=== PATIENT | male | born 1985 | race Caucasian/White ===

== ENCOUNTER 2016-07-21 11:48 | Emergency (ER) | payer OTHER ==
[2016-07-21] MEDS ORDERED: ACETAMINOPHEN TAB 500 MG TAB PO STA (12:18)
--- NOTE | 2016-07-21 12:29 | ED ---
General Adult HPI - General Chief complaint: Upper Respiratory Infection Stated complaint: flu symptoms Time Seen by Provider: 07/21/16 12:10 Source: patient Mode of arrival: ambulatory Limitations: no limitations - History of Present Illness Initial comments: 30-year-old male patient presents to emergency department today with complaints of cough, congestion, sore throat, and generalized body aches. He states that symptoms started 3 days ago. Patient states that his chest is tight and he has pain with cough. Patient was aware he had a fever but did not take any medication for this. Patient denies any abdominal pain, nausea, vomiting, constipation, diarrhea, or difficulty urinating. - Related Data Home Medications Medication Instructions Recorded Confirmed ALPRAZolam [Xanax] 1 mg PO DAILY PRN 07/21/16 07/21/16 Gabapentin [Neurontin] 1 tab PO TID 07/21/16 07/21/16 PARoxetine HCL [Paxil] 40 mg PO DAILY 07/21/16 07/21/16 QUEtiapine [SEROquel] 50 mg PO HS 07/21/16 07/21/16 Allergies Allergy/AdvReac Type Severity Reaction Status Date / Time Penicillins Allergy Unknown Verified 07/21/16 12:49 Childhood Review of Systems ROS Statement: Those systems with pertinent positive or pertinent negative responses have been documented in the HPI. ROS Other: All systems not noted in ROS Statement are negative. Past Medical History Past Medical History: No Reported History History of Any Multi-Drug Resistant Organisms: None Reported Past Surgical History: No Surgical Hx Reported Past Psychological History: Anxiety, Depression Smoking Status: Current every day smoker Past Alcohol Use History: None Reported Past Drug Use History: Marijuana General Exam Limitations: no limitations General appearance: alert, in no apparent distress Head exam: Present: atraumatic, normocephalic Eye exam: Present: normal appearance, PERRL, EOMI ENT exam: Present: normal exam, mucous membranes moist, TM's normal bilaterally , other (Pharyngeal erythema). Absent: normal oropharynx Neck exam: Present: normal inspection, full ROM. Absent: tenderness, meningismus, lymphadenopathy Respiratory exam: Present: normal lung sounds bilaterally, other (Dry cough noted during exam). Absent: respiratory distress, wheezes, rales, rhonchi Cardiovascular Exam: Present: regular rate, normal rhythm, bradycardia, normal heart sounds. Absent: irregular rhythm, systolic murmur, diastolic murmur, rubs , gallop, clicks GI/Abdominal exam: Present: soft. Absent: distended, tenderness, guarding, rebound, rigid Extremities exam: Present: normal inspection, full ROM, normal capillary refill Back exam: Present: normal inspection. Absent: CVA tenderness (R), CVA tenderness (L) Neurological exam: Present: alert, oriented X3 Psychiatric exam: Present: normal affect Skin exam: Present: warm, dry, intact. Absent: rash Course Vital Signs 07/21/16 12:10 Temperature 101 F H Pulse Rate 85 Respiratory 20 Rate Blood Pressure 128/70 O2 Sat by Pulse 95 Oximetry Medical Decision Making - Medical Decision Making 30-year-old male patient presented to emergency department today for complaints of cough, congestion, sore throat, and fever. Chest x-ray revealed no acute cardiopulmonary process. Influenza PCR test was positive for influenza B. Patient is outside the treatment window as he has had symptoms for the last 3 days. Patient was given by mouth Tylenol while here. Patient has been instructed regarding fever control and management of symptoms. Patient instructed to follow up with his primary care provider in the next 1-2 days for recheck. Patient instructed to return if he has any worse, new, or concerning symptoms. - Lab Data Lab Results 07/21/16 Range/Units 12:15 Influenza Type A RNA Not Detected (Not Detectd) Influenza Type B (PCR) Detected A (Not Detectd) - Radiology Data Radiology results: report reviewed, image reviewed Two-view chest x-ray reveals the cardiomediastinal silhouette, aorta and pulmonary vasculature within normal limits. Lungs and pleural spaces are clear. The impression is no acute cardiopulmonary process. Disposition Clinical Impression: Influenza B Disposition: HOME SELF-CARE Condition: Stable Instructions: Influenza (ED) Additional Instructions: Iacu-sna-upcuujr Tylenol and Motrin for pain and fever control. Increase fluids. Up with primary care provider in one to 2 days for recheck. Return to emergency department for any new, worsening, or concerning symptoms. Referrals: None,Stated [Primary Care Provider] - 1-2 days Time of Disposition: 12:57
--- NOTE | 2016-07-21 12:43 | XR ---
EXAMINATION TYPE: XR chest 2V DATE OF EXAM: 07/21/2016 12:31 PM COMPARISON: None HISTORY: 30-year-old male cough/pain TECHNIQUE: PA and lateral views FINDINGS: The cardiomediastinal silhouette, aorta, and pulmonary vasculature are within normal limits. Lungs an d pleural spaces are clear. IMPRESSION: No acute cardiopulmonary process.
[2016-07-21 13:16] VITALS: BP 109/52; PULSE 95; RESP 18; TEMP 100.4
== END 2016-07-21 13:12 | disposition home or self-care (01) ==
LOC: EC 11:48
DX: J10.1 Influenza due to other identified influenza virus with other respiratory manifestations (principal); Z79.899 Other long term (current) drug therapy; Z88.0 Allergy status to penicillin; F41.9 Anxiety disorder, unspecified; F32.9 Major depressive disorder, single episode, unspecified; F17.200 Nicotine dependence, unspecified, uncomplicated
CPT/HCPCS: 71020; 87502; 99283

== ENCOUNTER 2016-09-16 10:14 | Emergency (ER) | payer OTHER ==
[2016-09-16 10:19] VITALS: RESP 18
--- NOTE | 2016-09-16 10:22 | ED ---
Lower Extremity Injury HPI - General Chief Complaint: Extremity Injury, Lower Stated Complaint: ankle injury Source: patient Mode of arrival: wheelchair Limitations: no limitations - History of Present Illness Initial Comments: Patient is a 31-year-old male who presents for evaluation after a slip and fall on a roof and he twisted his right ankle. Past medical history of depression/ PTSD. 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 He was carrying some materials and he slipped twisting his right ankle. He slid down the roof but did not fall off of the roof. He had pain and swelling to the right ankle. Was unable to bear any weight on it after. He stated he was hopping around. No previous right ankle injuries. No pain to the right knee. He has multiple areas of scratches on it. He is up-to-date with his Tdap. Patient is also requesting a refill of his paroxetine. He takes 20 mg. He also admits to some nausea. Denies fever, chills, headache, chest pain, shortness breath, cough, vomiting. - Related Data Home Medications Medication Instructions Recorded Confirmed ALPRAZolam [Xanax] 1 mg PO DAILY PRN 07/21/16 09/16/16 QUEtiapine [SEROquel] 50 mg PO HS 07/21/16 09/16/16 Gabapentin [Neurontin] 300 mg PO TID 09/16/16 09/16/16 Ibuprofen [Motrin] 800 mg PO DAILY PRN 09/16/16 09/16/16 Naproxen Sodium [Aleve] 220 mg PO DAILY PRN 09/16/16 09/16/16 PARoxetine HCL [Paxil] 20 mg PO DAILY 09/16/16 09/16/16 Previous Rx's Medication Instructions Recorded HYDROcodone/APAP 5-325MG [Weston 1 - 2 tab PO Q6HR PRN #15 tab 09/16/16 5-325] PARoxetine [Paxil] 20 mg PO DAILY #5 tab 09/16/16 Allergies Allergy/AdvReac Type Severity Reaction Status Date / Time Penicillins Allergy Unknown Verified 09/16/16 10:33 Childhood Review of Systems ROS Statement: Those systems with pertinent positive or pertinent negative responses have been documented in the HPI. ROS Other: All systems not noted in ROS Statement are negative. Past Medical History Past Medical History: No Reported History Additional Past Medical History / Comment(s): depression History of Any Multi-Drug Resistant Organisms: None Reported Past Surgical History: No Surgical Hx Reported Past Psychological History: Anxiety, Depression Smoking Status: Current every day smoker Past Alcohol Use History: None Reported Past Drug Use History: Marijuana General Exam Limitations: no limitations General appearance: alert, in no apparent distress Head exam: Present: atraumatic, normocephalic, normal inspection Eye exam: Present: normal appearance, PERRL, EOMI. Absent: scleral icterus, conjunctival injection, periorbital swelling ENT exam: Present: normal exam, mucous membranes moist Neck exam: Present: normal inspection. Absent: tenderness, meningismus, lymphadenopathy Respiratory exam: Present: normal lung sounds bilaterally. Absent: respiratory distress, wheezes, rales, rhonchi, stridor Cardiovascular Exam: Present: regular rate, normal rhythm, normal heart sounds. Absent: systolic murmur, diastolic murmur, rubs, gallop, clicks GI/Abdominal exam: Present: soft, normal bowel sounds. Absent: distended, tenderness, guarding, rebound, rigid Extremities exam: Present: tenderness, normal capillary refill, joint swelling, other (Swelling to the lateral aspect of his right ankle. Limited range of motion. No pain with palpation of the midfoot. Distal pulses intact to the right foot.). Absent: pedal edema, calf tenderness Back exam: Present: normal inspection Neurological exam: Present: alert, oriented X3, CN II-XII intact Psychiatric exam: Present: normal affect, normal mood Skin exam: Present: warm, dry, intact, normal color. Absent: rash Course Vital Signs 09/16/16 10:16 Temperature 99.0 F Pulse Rate 61 Respiratory 18 Rate Blood Pressure 107/66 O2 Sat by Pulse 98 Oximetry Medical Decision Making - Medical Decision Making 1030: Patient presents for evaluation for right ankle pain and swelling after slip and fall. Patient also requesting a refill of his proximal 2. He does not have a primary care physician down here as he recently moved from [place]. We'll order plain films of his right ankle. 30 mg IM Toradol. We'll confirm his prescriptions status and prescribe him a short course of paroxetine to prevent withdrawal. 1100: Lateral malleolus fx on the right. 1130: Splint Disposition Clinical Impression: Fractured lateral malleolus Disposition: HOME SELF-CARE Condition: Good Instructions: Ankle Fracture (ED) Prescriptions: HYDROcodone/APAP 5-325MG [Weston 5-325] 1 - 2 tab PO Q6HR PRN #15 tab PRN Reason: Pain PARoxetine [Paxil] 20 mg PO DAILY #5 tab Referrals: Kalen James MD [STAFF PHYSICIAN] - 1-2 days Mo Crooks MD [Medical Doctor] - 1-2 days
[2016-09-16] MEDS ORDERED: KETOROLAC 30 MG/ML 1 ML VIAL IM STA (10:28)
--- NOTE | 2016-09-16 11:00 | XR ---
EXAMINATION TYPE: XR ankle complete RT DATE OF EXAM: 09/16/2016 10:40 AM COMPARISON: NONE HISTORY: 31-year-old male rolled right ankle wall and roof, pain. TECHNIQUE: 3 views FINDINGS: There is a minimally displaced oblique fracture of the distal fibula with overlying soft tissue swell ing. Additional anterior soft tissue swelling. Subtalar joint is aligned. Talar dome is intact. IMPRESSION: Minimally displaced oblique lateral malleolus fracture. Overlying soft tissue swelling.
[2016-09-16 11:39] VITALS: BP 115/55; PULSE 64; TEMP 99.4
== END 2016-09-16 11:39 | disposition home or self-care (01) ==
LOC: EC 10:14
DX: S82.61XA Displaced fracture of lateral malleolus of right fibula, initial encounter for closed fracture (principal); R11.0 Nausea; F32.9 Major depressive disorder, single episode, unspecified; F41.9 Anxiety disorder, unspecified; F17.200 Nicotine dependence, unspecified, uncomplicated; Z79.899 Other long term (current) drug therapy; Z88.0 Allergy status to penicillin; W01.0XXA Fall on same level from slipping, tripping and stumbling without subsequent striking against object, initial encounter; Y92.89 Other specified places as the place of occurrence of the external cause; Y93.89 Activity, other specified
CPT/HCPCS: 99283; 96372; 29515; 73610; J1885

== ENCOUNTER 2017-01-14 11:52 | Day surgery (SDC) | payer OTHER ==
[2017-01-13 13:47] VITALS: BMI 22.4
[~2017-01-14 11:52] MED LIST: DEXAMETHASONE SOD PHOSPHATE 10 MG/ML 1 ML VIAL IV ONE; HYDROmorphone 1 MG/ML 1 ML SYRINGE IVP PRN; LACTATED RINGERS 1,000 ML IV SCH; ONDANSETRON 4 MG/2 ML VIAL IVP ONE; ceFAZolin 2 GM in SODIUM CHLORIDE 0.9% 100 ML IVPB ONE
[2017-01-14] MEDS ORDERED: LIDOCAINE 1% 20 ML VIAL (10MG/ML) FOR IV START INTRADERMA ONE (12:33)
[2017-01-14] MEDS ORDERED: fentaNYL (PF) 50 MCG/ML 2 ML AMP IV ONE (13:20)
[2017-01-14] MEDS ORDERED: MIDAZOLAM 2 MG/2 ML VIAL IV ONE (13:20)
--- NOTE | 2017-01-14 13:52 | P.ONQ ---
Anesthesiology Proc Note - PNB - Peripheral Nerve Block Performed Right Popliteal Single Time Out Performed: Yes Indication: Acute Post-Operative Pain, Analgesia Specifically requested for management of pain by DrMari: Mo Crooks Sedation Type: Sedate with meaningful contact maintained Preparation: Sterile Prep Position: Supine (L lateral) Catheter: None Needle Types: Other (see comment) (pajunk) Needle Size: 50mm (2") Needle Gauge: 21 Technique: Ultrasound Injectate: Other (see comment) (10cc 2% lido + 10cc 0.5% Bupivicaine + epi 1:200 ,000) Blood Aspirated: No Pain Paresthesia on Injection Noted: No Resistance on Injection: Normal Events: Uneventful and Well Tolerated
[2017-01-14] MEDS ORDERED: ePHEDrine SULFATE/0.9% NACL/PF 50 MG/5 ML SYRINGE IV ONE (14:40)
[2017-01-14] MEDS ORDERED: LIDOCAINE 1% INJ 10MG/ML (20 ML MDV) ONE (14:40)
[2017-01-14] MEDS ORDERED: MIDAZOLAM 2 MG/2 ML VIAL ONE (14:40)
[2017-01-14] MEDS ORDERED: PROPOFOL 10 MG/ML 20 ML VIAL IV ONE (14:40)
[2017-01-14] MEDS ORDERED: ALBUTEROL INHALER 60 PUFF/8 GM INHALER INHALATION ONE (14:40)
[2017-01-14] MEDS ORDERED: fentaNYL (PF) 50 MCG/ML 2 ML AMP ONE (14:40)
[2017-01-14] MEDS ORDERED: SUCCINYLCHOLINE CHLORIDE 100 MG/5 ML SYR IV ONE (14:40)
[2017-01-14] MEDS ORDERED: GLYCOPYRROLATE 0.2 MG/ML 2 ML VIAL ONE (14:40)
[2017-01-14] MEDS ORDERED: LACTATED RINGERS 1,000 ML IV ONE (15:12)
[2017-01-14] MEDS ORDERED: HYDROcodone/APAP 10-325MG 1 EACH TAB PO ONE (16:10)
--- NOTE | 2017-01-14 16:32 | XR ---
Fluoroscopy History: RIGHT ANKLE FX right ankle fx. 15 secs fluoro, 5 saved images in OR for Dr. Crooks. images scanned under ankle ord er.
--- NOTE | 2017-01-14 16:55 | P.OP ---
Date of Procedure: 01/14/17 Preoperative Diagnosis: 1. Right lateral malleolus nonunion 2. Current every day cigarette smoker Postoperative Diagnosis: Same Procedure(s) Performed: 1. Open reduction and internal fixation of right lateral malleolus ankle fracture nonunion 2. Right calcaneal bone graft harvest 3. Application of short leg splint Implants: Anesthesia: VINICIO regional Surgeon: Mo Crooks Biomedical Engineering Technician #1: Karan Hannon Estimated Blood Loss (ml): 10 IV fluids (ml): 1,500 Pathology: none sent Condition: stable Disposition: PACU Indications for Procedure: The patient is a 31-year-old male with a medical history significant for smoking a pack of cigarettes a day who sustained a right ankle fracture in August 2016. He had x-rays which showed a minimally displaced Silva B distal fibula fracture and stable manual external rotation stress x-rays. He was managed nonoperatively in a boot area he went on to have continued pain and x- ray findings showing a delayed union. He was managed with calcium and vitamin D supplementation as well as a bone stimulator. He continued to have significant pain over the lateral aspect of his ankle. X-rays showed minimal interval healing. I recommended a computed tomography scan but due to the patient's health insurance status he is inclined. We discussed continued nonsurgical treatment with limited weightbearing and use of a bone stimulator versus open reduction and internal fixation and bone grafting. The patient elected to undergo surgery. We discussed potential risks and complications of surgery including but not limited to risk of anesthesia, risk of superficial infection, risk of deep infection, risk of delayed wound healing, risk of fracture nonunion risk of fracture malunion risk of intraoperative fracture, risk of postoperative fracture, risk of damage to local blood vessels or nerves , risk of symptomatic hardware, risk of peroneal tendon irritation, risk of postoperative calcaneus fracture, risk of chronic pain, risk of chronic swelling , risk of inability to regain preinjury level of function, risk of difficulty walking, risk of need for assistive device to ambulate, risk of inability to ambulate, risk of need for further surgery, risk of posterior medical arthritis , risk of DVT, risk of fatal PE, and possibly loss of life or limb. The patient understands all of these complications and that he is a much higher risk of having a complication due to his cigarette smoking. Operative Findings: There was a fibrous nonunion of the distal fibula fracture. The fracture site was still visible and easily manipulated laterally and anteriorly. There is a small amount of hard callus over the posterior lateral aspect of the fracture. Description of Procedure: The patient is a modified in preoperative holding and the correct right lower extremity was marked with my initials. I reviewed the consent form with the patient and his family. All of their questions were answered. A preoperative popliteal nerve block was placed by anesthesia. The patient was then brought back to the operating room. He was positioned on the operating room table and a general anesthetic and preoperative antibiotics were administered. All bony prominences were well-padded. A tourniquet was applied to the proximal aspect of the right thigh. A bone foam ramp was placed under the patient's right leg. The patient's right leg was then prepped and draped in the standard sterile fashion. Prior to starting surgery timeout was performed identifying the correct patient, operative extremity, and procedure. The patient's leg was then elevated, exsanguinated with an Esmarch bandage and the tourniquet was inflated to 250 mmHg. I began by outlining a longitudinal incision centered over the lateral malleolus. Skin incision was made a 15 blade scalpel. Dissection was carried down carefully the subcutaneous tissue with tenotomy scissors. A large branch the superficial peroneal nerve was identified in the proximal aspect of the wound and carefully retracted. The periosteum over the lateral malleolus was incised longitudinally in line with the skin incision. The fracture site was identified and exposed. There was an obvious fibrous nonunion with gross motion at the lateral and aspect of the fracture. There was some bony callus over the posterior lateral aspect of the fracture. All of the fibrous tissue was removed using a series of curettes down to healthy-appearing bleeding bone. The fracture was circumferentially exposed to allow the distal fragment to be reduced. At this point I elected to take bone graft from the calcaneus. A small stab incision was made over the lateral wall of the calcaneus. A 4.5 mm Job it was used to breech the outer cortex of the calcaneus. A 4.5 mm drill guide was used to take a large core bone out of the calcaneus. The core of bone was passed off to the back table. Attention was turned back to the distal fibula fracture. The wound was copiously irrigated. I verified that all of the exposed bone was healthy appearing bone with no fibrous tissue. The previously obtained calcaneal bone graft was then packed at the fracture nonunion site. I then reduced the fracture and placed a small [id number] reduction clamp generating excellent compression across the fracture site. I then placed a 6-hole one third tubular plate in the posterior lateral position to use as an anti-glide construct. I placed a 3.5 mm screw in the third hole of the plate just proximal to the fracture. I then placed a 3.5 mm screw in the first hole of the plate. I then placed a 3.5 mm screw in the sixth hole of the plate in the distal fragment. Finally I placed a 2.7 mm lag screw through the fifth hole of the plate. Using a 2.7 mm drill bit are graded a gliding hole in the posterior cortex the distal fragment and then used a 2.0 mm drill bit to create a threaded hole in the anterior cortex the proximal fragment. A fully threaded 2.7 mm lag screw was applied generating excellent compression across the fracture nonunion site. Conically the fracture appeared to be reduced and compressed. C-arm fluoroscopy was then taken to verify position of the hardware and reduction of the ankle. Both wounds were then copiously irrigated. The periosteum was closed with a running 0 Vicryl stitch. The deep subcu was reapproximated using 2-0 Vicryl. The skin was closed using 3-0 nylon Allgower modification of the Donati stitch. The incision over the calcaneus was closed with a single 3-0 nylon horizontal mattress stitch. I verified that all instrument, sponge, and sharp counts were correct. A sterile dressing consisting of Betadine soaked Adaptic, 4 x 4, and web roll was applied. A very well-padded bulky Ortiz splint was placed. The patient was then awoken from his anesthetic and transferred to the PACU having tolerated procedure well. Karan Hannon PA-C was required is a skilled campus administrative assistant for patient positioning, surgical exposure, fracture reduction, placement of hardware, closure of wounds , application of splint. Plan: The patient is going to be discharged home as an outpatient. He is to remain strictly nonweightbearing on his operative extremity. He was given up her prescription for pain medication and distal softener. He was also given a prescription for aspirin 325 mg twice a day. I counseled him at length about the importance of smoking cessation.
[2017-01-14 16:58] VITALS: TEMP 97.9
[2017-01-14 18:02] VITALS: RESP 16
[2017-01-14 18:19] VITALS: BP 116/68; PULSE 94
== END 2017-01-14 19:14 | disposition home or self-care (01) ==
LOC: OR 11:52
PROVIDERS: ATTEND Orthopaedic Surgery
DX: S82.61XA Displaced fracture of lateral malleolus of right fibula, initial encounter for closed fracture (principal); M79.7 Fibromyalgia; F32.9 Major depressive disorder, single episode, unspecified; F17.210 Nicotine dependence, cigarettes, uncomplicated; Z79.1 Long term (current) use of non-steroidal anti-inflammatories (NSAID); Z79.891 Long term (current) use of opiate analgesic; Z79.899 Other long term (current) drug therapy; Z88.0 Allergy status to penicillin
CPT/HCPCS: 73600; 27792; 27726; 27899; 20902; C1713; J2250; J1100; J0690; J2405; J3010

== ENCOUNTER → 2017-08-11 | Outpatient (CLI) | payer OTHER ==
--- NOTE | 2017-08-11 21:45 | CT ---
Right ankle EXAMINATION TYPE: CT ankle RT wo con DATE OF EXAM: 08/11/2017 COMPARISON: NONE HISTORY: Pain in right ankle. CT DLP: [address] of the right ankle with reconstruction imaging. TECHNIQUE: Unenhanced CT of the right ankle was performed with bone and soft tissue window settings s ubmitted in the axial coronal and sagittal planes. At a separate workstation 3-D TR imaging was obta ined. FINDINGS: Previous plate fixation distal fibular fracture with fixation screws in place. There is ovidio dence of partial nonunion ventral portion distal fibular fracture. No acute fracture is evident. Tibi a is intact. Medial malleolus is unremarkable. Ankle mortise is intact. Small bone cyst os calcis. Mi ld lateral soft tissue swelling. Severe thickening peroneus tendons may reflect tear or rupture. Shannon elate clinically. IMPRESSION: 1. There is evidence of partial nonunion ventral portion distal fibular fracture. 2.Severe thickening peroneus tendons may reflect tear or rupture. Correlate clinically.
== END | disposition home or self-care (01) ==
LOC: RADCTMAIN 18:37
PROVIDERS: ATTEND Orthopaedic Surgery
DX: Z48.89 Encounter for other specified surgical aftercare (principal); S82.831K Other fracture of upper and lower end of right fibula, subsequent encounter for closed fracture with nonunion; M67.871 Other specified disorders of synovium, right ankle and foot; F17.210 Nicotine dependence, cigarettes, uncomplicated; Z98.890 Other specified postprocedural states

== ENCOUNTER 2018-04-27 07:35 | Emergency (ER) | payer OTHER ==
[2018-04-27 07:40] VITALS: BP 122/79; PULSE 92; RESP 16; TEMP 98.4
[2018-04-27] MEDS ORDERED: KETOROLAC 60 MG/2 ML VIAL IM STA (07:50)
--- NOTE | 2018-04-27 07:55 | ED ---
URI HPI - General Chief Complaint: Upper Respiratory Infection Stated Complaint: poss bronchitis Time Seen by Provider: 04/27/18 07:45 Source: patient, RN notes reviewed Mode of arrival: ambulatory Limitations: no limitations - History of Present Illness Initial Comments: 32-year-old male presents emergency Department chief complaint cough congestion , fever bodyaches. Patient states that symptoms started last night. Patient states he aches and hurts all over. Patient denies any sick contacts no ear pain does have mild sore throat. Patient denies any known lung disease including asthma, COPD. Patient took some NyQuil last night no other medications taken does have ALLERGY to penicillin products. Patient denies nausea vomiting diarrhea constipation no neck pain or neck stiffness. - Related Data Home Medications Medication Instructions Recorded Confirmed Acetaminophen [Tylenol Extra 500 mg PO Q6H PRN 04/27/18 04/27/18 Strength] Aspirin/Acetaminophen/Caffeine 1 tab PO Q12HR PRN 04/27/18 04/27/18 [Excedrin Extra Strength Caplet] Dm/Acetaminophen/Doxylamine [Vicks 4 tab PO Q6H PRN 04/27/18 04/27/18 Nyquil Liquicaps] Ibuprofen [Motrin Ib] 200 mg PO Q6H PRN 04/27/18 04/27/18 Naproxen Sodium [Aleve] 220 mg PO Q12HR PRN 04/27/18 04/27/18 PARoxetine HCL 40 mg PO DAILY 04/27/18 04/27/18 Previous Rx's Medication Instructions Recorded Ibuprofen [Motrin] 600 mg PO Q8HR PRN #30 tab 04/27/18 predniSONE 50 mg PO DAILY #5 tab 04/27/18 Allergies Allergy/AdvReac Type Severity Reaction Status Date / Time Penicillins Allergy Unknown Verified 04/27/18 07:54 Childhood Review of Systems ROS Statement: Those systems with pertinent positive or pertinent negative responses have been documented in the HPI. ROS Other: All systems not noted in ROS Statement are negative. Past Medical History Past Medical History: No Reported History Additional Past Medical History / Comment(s): rt ankle injury-using jesse wrap History of Any Multi-Drug Resistant Organisms: None Reported Past Surgical History: No Surgical Hx Reported Past Anesthesia/Blood Transfusion Reactions: No Reported Reaction Past Psychological History: Anxiety, Depression Smoking Status: Current every day smoker Past Drug Use History: Marijuana - Past Family History Father Family Medical History: COPD, Deep Vein Thrombosis (DVT) General Exam Limitations: no limitations General appearance: alert, in no apparent distress Head exam: Present: atraumatic, normocephalic, normal inspection Eye exam: Present: normal appearance, PERRL, EOMI. Absent: scleral icterus, conjunctival injection, periorbital swelling ENT exam: Present: normal exam, normal oropharynx, mucous membranes moist, TM's normal bilaterally Neck exam: Present: normal inspection, full ROM. Absent: tenderness, meningismus, lymphadenopathy Respiratory exam: Present: normal lung sounds bilaterally. Absent: respiratory distress, wheezes, rales, rhonchi, stridor Cardiovascular Exam: Present: regular rate, normal rhythm, normal heart sounds. Absent: systolic murmur, diastolic murmur, rubs, gallop, clicks GI/Abdominal exam: Present: soft, normal bowel sounds. Absent: distended, tenderness, guarding, rebound, rigid Neurological exam: Present: alert Skin exam: Present: warm, dry, intact, normal color. Absent: rash Course Vital Signs 04/27/18 07:36 Temperature 98.4 F Pulse Rate 92 Respiratory 16 Rate Blood Pressure 122/79 O2 Sat by Pulse 98 Oximetry Medical Decision Making - Medical Decision Making 32-year-old male presents emergency from for cough congestion body aches. Patient is negative influenza, chest x-ray consistent with bronchitis. Patient has no hypoxic events. Patient will be given ibuprofen for his body aches, short course of steroids and will follow-up PCP return parameters were discussed. - Lab Data Lab Results 04/27/18 Range/Units 08:00 Influenza Type A RNA Not Detected (Not Detectd) Influenza Type B (PCR) Not Detected (Not Detectd) Disposition Clinical Impression: Bronchitis, Myalgia Disposition: HOME SELF-CARE Condition: Stable Instructions: Acute Bronchitis (ED) Additional Instructions: Please return to the Emergency Department if symptoms worsen or any other concerns. Prescriptions: Ibuprofen [Motrin] 600 mg PO Q8HR PRN #30 tab PRN Reason: Pain predniSONE 50 mg PO DAILY #5 tab Is patient prescribed a controlled substance at d/c from ED?: No Referrals: None,Stated [Primary Care Provider] - 1-2 days Time of Disposition: 08:37
--- NOTE | 2018-04-27 08:33 | XR ---
EXAMINATION TYPE: XR chest 2V DATE OF EXAM: 04/27/2018 COMPARISON: 07/21/2016 HISTORY: 32-year-old male with cough and pain TECHNIQUE: PA and lateral views FINDINGS: The cardiomediastinal silhouette, aorta, and pulmonary vasculature are within normal limits. There is mild peribronchial cuffing especially apparent on the lateral view. No consolidation or pleural effu randi. IMPRESSION: Peribronchial cuffing suggesting bronchitis or asthma. No focal infiltrate to suggest pneumonia at th is time.
== END 2018-04-27 08:37 | disposition home or self-care (01) ==
LOC: EC 07:35
DX: J40 Bronchitis, not specified as acute or chronic (principal); M79.10 Myalgia, unspecified site; F41.9 Anxiety disorder, unspecified; F32.9 Major depressive disorder, single episode, unspecified; F17.200 Nicotine dependence, unspecified, uncomplicated; Z82.5 Family history of asthma and other chronic lower respiratory diseases; Z79.899 Other long term (current) drug therapy; Z88.0 Allergy status to penicillin
CPT/HCPCS: 87502; 71046; 99283; 96372; J1885

== ENCOUNTER 2020-07-31 13:16 | Emergency (ER) | payer OTHER ==
[2020-07-31 13:34] VITALS: BP 106/67; PULSE 67; RESP 18; TEMP 98.6
[2020-07-31] MEDS ORDERED: PARoxetine 20 MG TAB PO STA (14:27)
[2020-07-31] MEDS ORDERED: LORazepam 2 MG/ML INJ IM STA (14:40)
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
== END 2020-07-31 15:10 | disposition home or self-care (01) ==
LOC: EC 13:16
DX: Z76.0 Encounter for issue of repeat prescription (principal); F41.9 Anxiety disorder, unspecified; R45.1 Restlessness and agitation; F12.90 Cannabis use, unspecified, uncomplicated; Z87.891 Personal history of nicotine dependence
CPT/HCPCS: 99281; J2060

== ENCOUNTER 2020-08-16 18:23 | Emergency (ER) | payer OTHER ==
[2020-08-16] MEDS ORDERED: LORazepam 2 MG/ML INJ IV STA (18:51)
[2020-08-16] MEDS ORDERED: HYDROmorphone 1 MG/ML 1 ML SYRINGE IVP STA (18:51)
[2020-08-16 19:34] LABS: Basophils % (A) 1 %; Eosinophils # (A) 0.1 k/uL (0-0.7); Eosinophils % (A) 2 %; HCT 36.2 % (39.0-53.0); Lymphocytes # (A) 2.3 k/uL (1.0-4.8); Lymphocytes % (A) 33 %; MCH 33.1 pg (25.0-35.0); MCHC 35.8 g/dL (31.0-37.0); MCV 92.5 fL (80.0-100.0); Mean Platelet Volume 7.5; Monocytes # (A) 0.6 k/uL (0-1.0); Monocytes % (A) 9 %; Neutrophils # (A) 3.7 k/uL (1.3-7.7); Neutrophils % (A) 54 %; Platelet Count 256 k/uL (150-450); RBC 3.91 m/uL (4.30-5.90); RDW 13.4 % (11.5-15.5); WBC 6.9 k/uL (3.8-10.6)
[2020-08-16 19:47] LABS: ALT 40 U/L (4-49); AST 67 U/L (17-59); African American GFR (CKD) >90 (>60 ml/min/1.73 sqM); Alkaline Phosphatase 63 U/L (38-126); Anion Gap 7 mmol/L; Blood Urea Nitrogen 14 mg/dL (9-20); Calcium 9.2 mg/dL (8.4-10.2); Carbon Dioxide 26 mmol/L (22-30); Chloride 105 mmol/L (98-107); Glucose 86 mg/dL (74-99); Non-African American GFR(CKD) >90 (>60 ml/min/1.73 sqM); Potassium 3.8 mmol/L (3.5-5.1); Sodium 138 mmol/L (137-145); Total Bilirubin 0.3 mg/dL (0.2-1.3); Total Protein 6.3 g/dL (6.3-8.2)
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
[2020-08-16] MEDS ORDERED: CLINDAMYCIN 150 MG CAP PO STA (20:27)
[2020-08-16] MEDS ORDERED: ACET/COD 300 MG/30 MG STARTER PACK 6 TAB BTL PO STA (20:29)
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
[2020-08-16 21:03] VITALS: BP 108/64; PULSE 70; RESP 18; TEMP 98.4
== END 2020-08-16 21:03 | disposition home or self-care (01) ==
LOC: EC 18:23
DX: S01.532A Puncture wound without foreign body of oral cavity, initial encounter (principal); F41.9 Anxiety disorder, unspecified; F32.9 Major depressive disorder, single episode, unspecified; Z87.891 Personal history of nicotine dependence; Y04.8XXA Assault by other bodily force, initial encounter
CPT/HCPCS: 36415; 80053; 85025; 74177; 99283; 96374; 96375; J2060; J1170; Q9967

== ENCOUNTER 2020-11-18 03:33 | Emergency (ER) | payer OTHER ==
[2020-11-18 03:41] VITALS: BP 147/85; PULSE 85; RESP 18; TEMP 98
[2020-11-18] MEDS ORDERED: IBUPROFEN 600 MG TAB PO STA (03:48)
[2020-11-18] MEDS ORDERED: CLINDAMYCIN 150 MG CAP PO STA (03:48)
[2020-11-18] MEDS ORDERED: ACET/COD 300 MG/30 MG STARTER PACK 6 TAB BTL PO STA (03:48)
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
== END 2020-11-18 04:27 | disposition home or self-care (01) ==
LOC: EC 03:33
DX: K02.9 Dental caries, unspecified (principal); F32.9 Major depressive disorder, single episode, unspecified; F41.9 Anxiety disorder, unspecified; F17.200 Nicotine dependence, unspecified, uncomplicated; F12.90 Cannabis use, unspecified, uncomplicated; Z79.82 Long term (current) use of aspirin; Z88.0 Allergy status to penicillin
CPT/HCPCS: 99282